=== PATIENT | female | born 1955 | race Caucasian/White ===

== ENCOUNTER → 2017-09-17 | Day surgery (SDC) | payer OTHER ==
[~2017-09-17] MED LIST: ASPIR 8181 MG PO; BRIVIACT PO; FENTANYL CITRATE/PF 100MCG/2 ML INJ ONE; HYOSCYAMINE SULFATE 0.5 MG/ML AMP ONE; MIDAZOLAM HCL 2 MG/2 ML VIAL ONE; PROPOFOL IV EMULSION 10 MG/ML 50 ML VIAL ONE; VIT D3 PO; ZOLOFT50 MG PO
--- OUTSIDE RECORDS SUMMARY | 2017-09-17 11:37 | XMS REPORT | Clinical Summary ---
Author Author [employer] [facility] [employer] [facility] Address Unknown Phone Unavailable Care Team Providers Care Technical Assistance Consultant Name Role Phone Sanchez Hoff MD PCP Unavailable Allergies Active Allergy Reactions Severity Noted Date Comments No Known Drug Allergies 05/14/2016 Current Medications Prescription Sig. Disp. Refills Start End Date Status Date sertraline (ZOLOFT) 100 TAKE ONE (1) TABLET(S) BY 3 03/09/20 Active MG tablet MOUTH ONCE A DAY. 16 aspirin 81 mg chewable 1 tablet every day by 04/27/20 Active tablet oral route. 14 cholecalciferol, vitamin Take 1,000 Units by mouth Active D3, (VITAMIN D3) 1,000 daily. unit capsule brivaracetam (BRIVIACT) Take 100 mg by mouth 2 180 tablet 1 08/01/19 01/29/20 Active 100 mg tablet (two) times a day for 180 18 18 days. levETIRAcetam XR (KEPPRA TK 2 T PO BID 3 05/28/20 08/01/19 Discontin XR) 500 mg 24 hr tablet 16 18 ued zolpidem (AMBIEN) 10 mg TAKE ONE (1) TABLET(S) BY 05/22/20 Discontin tablet MOUTH ONCE A DAY AT 17 ued BEDTIME NEEDED FOR SLEEP. PREMPRO 0.3-1.5 mg per TAKE ONE (1) TABLET(S) BY 84 tablet 1 09/04/19 11/15/19 Discontin tablet MOUTH ONCE A DAY. 17 17 ued XARELTO 15 mg tablet TK 1 T PO BID 3 11/01/19 05/22/20 Discontin 17 17 ued brivaracetam (BRIVIACT) Take 100 mg by mouth 2 120 tablet 5 05/22/20 05/22/20 Discontin 50 mg tablet (two) times a day for 180 17 17 ued days. brivaracetam (BRIVIACT) Take 100 mg by mouth 2 360 tablet 1 05/22/20 05/22/20 Discontin 50 mg tablet (two) times a day for 180 17 17 ued days. 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 05/14/2016 Stress incontinence in female 05/14/2016 Breast density 05/14/2016 Hypercalcemia 10/21/2014 Parathyroid adenoma 10/21/2014 Encounters Date Type Specialty Care Team Description 08/01/2017 Refill Neurology Blank Lopez RN 05/22/2017 Office Visit Neurology Polo Wade MD 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 (Primary Dx) 04/02/2017 Office Visit Orthopedic Surgery Clark Bean MD Pain of finger of left hand (Primary Dx) 11/14/2016 Office Visit Neurology Polo Wade MD 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 (Primary Dx) 10/31/2016 Telephone Physical Therapy Maldonado Gerardo MD 09/27/2016 Transcribe Physical Therapy Maldonado Gerardo MD Patellofemoral syndrome Orders of right knee (Primary Dx) 09/24/2016 Office Visit Obstetrics and Gynecology Jordana Briones MD Encounter for gynecological examination without abnormal finding (Primary Dx); Special screening for malignant neoplasms, colon; Encounter for screening mammogram for malignant neoplasm of breast after 09/16/2016 Family History Medical History Relation Name Comments Anemia Father Stroke Mother Relation Name Status Comments Father Mother Social History Tobacco Use Types Packs/Day Years Used Date Never Smoker Smokeless Tobacco: Never Used Tobacco Cessation: Counseling Given: No Alcohol Use Drinks/Week oz/Week Comments Yes occasional Sex Assigned at Date Recorded Not on file Last Filed Vital Signs Vital Sign Reading Time Taken Blood Pressure 123/66 05/22/2017 8:58 AM CDT Pulse 60 05/22/2017 8:58 AM CDT Temperature - - Respiratory Rate - - Oxygen Saturation - - Inhaled Oxygen - - Concentration Weight 80 kg (176 lb 4.8 oz) 05/22/2017 8:58 AM CDT Height 157.5 cm (5' 2") 05/22/2017 8:58 AM CDT Body Mass Index 32.25 05/22/2017 8:58 AM CDT Plan of Treatment Date Type Specialty Care Team Description 09/19/2017 Office Visit Neurology Polo Wade MD [address] [place], [place] [id number] 09/25/2017 Office Visit Obstetrics and Gynecology Jordana Briones MD [address] [place], [place] [id number] 09/30/2017 Office Visit Ophthalmology Laisha Andre MD [address] [place] [address] [phone] Health Maintenance Due Date Last Done Comments COLONOSCOPY 2004 ZOSTER VACCINE 2014 INFLUENZA VACCINE 02/26/2017 05/29/2015 MAMMOGRAM 09/19/2017 09/19/2015, 09/14/2015 PAP SMEAR 09/24/2019 09/24/2016 Results * XR Finger 2+ Vw Left (04/02/2017 9:56 AM) Specimen Performing Laboratory [facility] [address] [place] [address] Narrative 3 views left small finger in good penetrance and quality with out any acute obvious fractures, dislocations or calcifications unless HPI states otherwise. * Gynecologic Pap Test (Image-guided), Liquid-based Preparation and Human Papillomavirus (HPV) High-risk DNA Detection With Reflex to HPV Genotypes 16 and 18 (09/24/2016 11:37 AM) Component Value Ref Range Diagnosis Comment Comment: NEGATIVE FOR INTRAEPITHELIAL LESION AND MALIGNANCY. THIS SPECIMEN WAS RESCREENED PART OF OUR ESOL INSTRUCTOR PROGRAM. Specimen adequacy Comment Comment: Satisfactory for evaluation. Endocervical and/or squamous metaplastic cells (endocervical component) are present. Clinician provided ICD10 CommentComment: Z01.419 Performed by: CommentComment: Radha Ivey, Product Support Specialist (ASCP) QC reviewed by: Comment Comment: Kelly Iraheta, Supervisory Product Support Specialist (ASCP) Reviewed at: [address] [id number] Comment . Note: Comment Comment: The Pap smear is a screening test designed to aid in the detection of premalignant and malignant conditions of the uterine cervix. It is not a diagnostic procedure and should not be used as the sole means of detecting cervical cancer. Both false-positive and false-negative reports do occur. Test methodology Comment Comment: This liquid based ThinPrep(R) pap test was screened with the use of an image guided system. HPV, high-risk Negative Negative Comment: This high-risk HPV test detects thirteen high-risk types (16/18/31/33/35/39/45/51/52/56/58/59/68) without differentiation. Specimen Performing Laboratory [facility] Narrative Performed at: [id number] Computer Analyst: Danae Jacques MD, Phone:[phone] Performed at: - Lab[id number] Computer Analyst: Danae Jacques MD, Phone:[phone] Specimen Comment: No. of containers..01 CYTYC Thin Prep Vial * Occult blood, stool (09/24/2016 9:19 AM) Component Value Ref Range Occult blood, stool Negative Negative Specimen Performing Laboratory Stool [facility] Narrative Performed at: [id number] Computer Analyst: Aryan Patten MD, Phone:[phone] after 09/16/2016 Insurance Payer Benefit Subscriber ID Type Phone Address Plan / Group [employer] C[employer] OPEN xxxxxxxxxxx HMO ACCESS/NET WORK Home:
--- NOTE | 2017-09-17 15:31 | Operative Report ---
DATE OF PROCEDURE: September 17, 2017 REFERRING PHYSICIAN: Dr. Noble Hoff. PROCEDURE PERFORMED: Colonoscopy and polypectomy. INDICATIONS FOR COLONOSCOPY: Colorectal cancer screening, personal history of colon polyps. MEDICATION: Patient was done under MAC. Please see anesthesiologist's note. PROCEDURE: With the patient in the left lateral decubitus position, the flexible fiberoptic Olympus colonoscope was inserted into the rectum with ease and advanced all the way to the cecum. The scope was then withdrawn slowly. Mucosa overlying the cecum, ascending colon and transverse colon grossly appeared to be within normal limits. One polyp was hot biopsied from the descending colon. Diverticular disease was noted to involve the descending and the sigmoid colon. One polyp was snared from the sigmoid colon. The rectum appeared to be within normal limits. The scope was then retroflexed into the distal rectum. Small internal hemorrhoids were noted, none of which was actively bleeding. The scope was then straightened out. It was subsequently withdrawn. Patient tolerated the procedure well. IMPRESSION 1. Descending colon polyp, hot biopsied. 2. Diverticulosis. 3. Sigmoid colon polyp, snared. 4. Internal hemorrhoids, none actively bleeding. PLAN: Follow up histology. Initiate high-fiber, low-fat diet. Initiate high-fiber supplement. Patient will need a followup colonoscopy in 3 years. Job#: [id number] cc:NOBLE HOFF MD
== END | disposition home or self-care (01) ==
LOC: OR 11:35
PROVIDERS: ATTEND Internal Medicine Gastroenterology
DX: Z12.11 Encounter for screening for malignant neoplasm of colon (principal); D12.5 Benign neoplasm of sigmoid colon; K57.30 Diverticulosis of large intestine without perforation or abscess without bleeding; K64.8 Other hemorrhoids; G47.33 Obstructive sleep apnea (adult) (pediatric); I45.10 Unspecified right bundle-branch block; F41.9 Anxiety disorder, unspecified; Z01.810 Encounter for preprocedural cardiovascular examination; Z79.82 Long term (current) use of aspirin; Z68.31 Body mass index [BMI] 31.0-31.9, adult; Z86.711 Personal history of pulmonary embolism
CPT/HCPCS: 45384; 45385; 93005; J1980; J2250

== ENCOUNTER → 2017-10-10 | Outpatient (CLI) | payer OTHER ==
[~2017-10-10] MED LIST changes: -FENTANYL CITRATE/PF 100MCG/2 ML INJ ONE; -HYOSCYAMINE SULFATE 0.5 MG/ML AMP ONE; -MIDAZOLAM HCL 2 MG/2 ML VIAL ONE; -PROPOFOL IV EMULSION 10 MG/ML 50 ML VIAL ONE
--- NOTE | 2017-10-10 10:18 | Diagnostic Imaging Report ---
PROCEDURE:US LIVER COMPARISON:None. INDICATION:Elevated Liver Enzymes TECHNIQUE: Grayscale and color Doppler ultrasound liver FINDINGS: Right liver span 13.4 cm. Mildly increased echogenicity of the parenchyma. Portal vein diameter 0.9 cm; normal flow direction. Cholecystectomy. Common bile duct diameter 0.3 cm. Imaged portions of the pancreas, aorta, inferior vena cava and right kidney are normal. CONCLUSION: 1. Mildly increased liver echogenicity most commonly secondary to steatosis. 2. Cholecystectomy. Dictated by: Hector Vaughn M.D. on 10/10/2017 at 10:17 Electronically approved by: Hector Vaughn M.D. on 10/10/2017 at 10:17
== END ==
LOC: US 08:52
PROVIDERS: ATTEND Internal Medicine Gastroenterology
DX: R74.8 Abnormal levels of other serum enzymes (principal)
CPT/HCPCS: 76705